=== PATIENT | male | born 1965 | race Caucasian/White ===

== ENCOUNTER 2017-12-30 02:07 | Emergency (ER) | payer OTHER, SELFPAY ==
--- NOTE | 2017-12-30 02:16 | ED.ABDPAIN ---
HPI - Abdominal Pain General Chief Complaint: Abdominal Pain Stated Complaint: Abdonimal pain Time Seen by Provider: 12/30/17 02:07 Source: patient and EMS Mode of arrival: EMS Limitations: no limitations History of Present Illness HPI narrative: Patient is a 52-year-old male who presents with right lower quadrant pain. Sent over from [facility] for CT concerned for appendicitis. He is febrile and does have white count of 15. He said his pain initially started mid epigastric and has lowered to right lower quadrant suprapubic area. It feels better when he is lying on his stomach. No flank pain no area some nausea no vomiting Related Data Previous Rx's Medication Instructions Recorded levofloxacin [Levaquin] 750 mg PO DAILY #7 tab 12/30/17 metronidazole [Flagyl] 500 mg PO TID #21 tab 12/30/17 Allergies Allergy/AdvReac Type Severity Reaction Status Date / Time No Known Drug Allergies Allergy Verified 12/30/17 02:19 Review of Systems Review of Systems GENERAL: Denies chills, fatigue, malaise, fever, sweats, travel HEENT: Denies sinus pain, ear pain, sore throat, difficulty swallowing, neck pain RESPIRATORY: Denies dyspnea, cough, wheezing, hemoptysis, sputum. CARDIOVASCULAR: Denies chest pain, palpitations, orthopnea, edema GASTROINTESTINAL: See HPI : Denies dysuria, frequency, incontinence, hematuria, urinary retention, flank pain. MUSCULOSKELETAL: Denies weakness, joint pain, or bony pain SKIN: No rash, no erythema, no pruritus NEUROLOGIC: Denies weakness, dizziness, headache, numbness, change in speech, confusion PSYCHIATRIC: No concerning psychosocial issues. 12 point review of systems is negative except for those stated above and HPI [facility] Social History Smoking Status: Never smoker Exam Initial Vital Signs Initial Vital Signs: Vital Signs Temperature 98.4 F 12/30/17 02:19 Pulse Rate 75 12/30/17 02:19 Respiratory Rate 15 12/30/17 02:19 Blood Pressure 122/99 H 12/30/17 02:19 Pulse Oximetry 98 12/30/17 02:19 GENERAL: Well-appearing, well-nourished and in no acute distress. HEENT: Head atraumatic,EOMI, pupils reactive, face symmetric, moist mucous membranes CARDIOVASCULAR: Regular rate and rhythm without murmurs, rubs or gallops. RESPIRATORY: Breath sounds equal bilaterally, no wheezes rales or rhonchi. ABDOMEN: Soft, tenderness suprapubic and slightly right lower quadrant area without guarding or rebound negative Mahoney sign : No CVA tenderness EXTREMITIES: Normal range of motion, no clubbing or edema. Neurovascularly intact NEUROLOGICAL: Alert and oriented x4.Normal gait and speech. Cranial nerves II through XII grossly intact. SKIN: Warm, dry, no laceration, no petechiae, no rashes or lesions. Course Orders Ordered: ED Orders 12/30/17 02:37 CT abdomen pelvis w con Stat Discontinued Medications Ibuprofen (Advil) 800 mg PO NOW ONE Stop: 12/30/17 03:31 Last Admin: 12/30/17 03:35 Dose: 800 mg Levofloxacin (Levaquin) 750 mg PO NOW ONE Stop: 12/30/17 03:23 Last Admin: 12/30/17 03:28 Dose: 750 mg Metronidazole (Metronidazole) 500 mg PO NOW ONE Stop: 12/30/17 03:23 Last Admin: 12/30/17 03:28 Dose: 500 mg Vital Signs - 8 hr 12/30/17 02:19 Temperature 98.4 F Pulse Rate 75 Respiratory Rate 15 Blood Pressure 122/99 H Pulse Oximetry 98 MDM - Abdominal Pain Lab Data Attestation: I reviewed the patient's lab results. Imaging Data CT scan - abdomen: Radiologist's impression: shift production associate report: Acute sigmoid diverticulitis. No gross free air or loculated fluid collections/mature abscess. Globular enhancement in the area of inflammation may be related to colonic angiodysplasia micro pseudo aneurysm and/or focus of bleed for example. No mechanical bowel obstruction. Discharge Plan Departure Patient Disposition: Home, Self-Care Clinical Impression: Diverticulitis Discharge Date/Time: 12/30/17 03:50 Interventions: ED Discharge Assessment Last Done: 12/30/17 03:49 Instructions: Diverticulitis Activity Restrictions/Additional Instructions: *You have been diagnosed with diverticulitis *What to do: At this time would avoid high-fiber foods to let colon inflammation calmed down *Continue to take medications as directed -Levaquin 750 mg once a day for 7 days -Flagyl 500 mg 3 times a day for 7 days *Follow up with your primary care provider in 2-3 days *Return to ER if you should have worsening pain or any new, worsening or concerning symptoms Prescriptions: New metronidazole [Flagyl] 500 mg tablet 500 mg PO TID Qty: 21 RF: 0 levofloxacin [Levaquin] 750 mg tablet 750 mg PO DAILY Qty: 7 RF: 0
[2017-12-30 02:19] VITALS: BP 122/99; PULSE 75; RESP 15; TEMP 36.9; O2SAT 98; BMI 26.4
--- NOTE | 2017-12-30 02:37 | DI.CT.S_ITS ---
PROCEDURE: CT ABDOMEN PELVIS W CON INDICATIONS: right lower abdominal pain TECHNIQUE: After the administration of intravenous contrast, 5 mm thick sections acquired from the diaphragm to the symphysis. 5 mm coronal and sagittal reformats were acquired. For radiation dose reduction, the following was used: automated exposure control, adjustment of mA and/or kV according to patient size. COMPARISON: None. FINDINGS: Preliminary report by maintenance mechanic 2nd shift radiology Image quality: Excellent. ABDOMEN: Lung bases: Lung bases are clear. Heart size is normal. Solid organs: Liver is normal in size and enhancement. Subcentimeter focus of hypodensity in the right lobe liver laterally and anteriorly is indeterminate, statistically hepatic cyst or hemangioma. Gallbladder appears clear. Biliary system is non dilated. Pancreas enhances normally. Spleen is normal in size and enhancement. No adrenal nodules. Kidneys demonstrate normal size and enhancement, without hydronephrosis. Peritoneum and bowel: Small bowel loops demonstrate normal wall thickness and caliber. Appendix is not seen. There may be surgical clips at the cecum. Terminal ileum appears normal. Considerable stool throughout the proximal colon. Distally, there is sigmoid diverticulosis and a focal area of inflammatory wall thickening with pericolic fat stranding there is a small fluid collection posterior to the inflammatory process measuring approximately 1.5 x 2.5 cm in size, containing no air. Also noted on series 2/image 71, is a small round focus of contrast density within the inflamed bowel wall, possibly representing a small bleed or pseudoaneurysm. Nodes and vessels: No retroperitoneal or mesenteric adenopathy by size criteria. Aorta and inferior vena cava are normal in size. Miscellaneous: No ventral hernias. PELVIS: Genitourinary: Bladder wall thickness is normal. Prostate is mildly enlarged. Miscellaneous: No inguinal hernias or adenopathy. Bones: No suspicious bony lesions. No vertebral body compression fractures. IMPRESSION: 1. Sigmoid diverticulitis associated with a small fluid collection that could represent early abscess. Small focus of hyperdensity within the inflamed wall is noted above. 2. Probable post appendectomy. 3. Considerable stool volume throughout the colon proximal to the splenic flexure, possible constipation. 4. Small subcentimeter hypodensity within the liver is indeterminate. Findings are concordant with the preliminary report except the small fluid collection posterior to the diverticulitis was not noted and could represent early abscess. Dictated by: Bhupendra Mari M.D. on 12/30/2017 at 8:18 Approved by: Bhupendra Mari M.D. on 12/30/2017 at 8:33
[2017-12-30] MEDS: levoFLOXacin 250 MG TABLET 750 MG PO (03:28)
[2017-12-30] MEDS: metroNIDAZOLE 250 MG TABLET 500 MG PO (03:28)
[2017-12-30] MEDS: IBUPROFEN 400 MG TABLET 800 MG PO (03:35)
== END 2017-12-30 03:50 | disposition home or self-care (01) ==
LOC: ED 03:45
PROVIDERS: Emergency Provider Emergency Medicine
DX: K57.92 Diverticulitis of intestine, part unspecified, without perforation or abscess without bleeding (principal)
CPT/HCPCS: 74177; 99282; 99285; Q9967

== ENCOUNTER → 2022-12-21 12:05 | Outpatient (CLI) | payer OTHER, SELFPAY ==
[2022-12-21 13:41] LABS: Urine N gonorrhoeae NOT DETECTED
[2022-12-21 13:44] LABS: Urine Chlamydia NOT DETECTED
== END ==
PROVIDERS: Visit Provider Student in an Organized Health Care Education/Training Program
DX: Z11.3 Encounter for screening for infections with a predominantly sexual mode of transmission (principal)
CPT/HCPCS: 87491; 87591